=== PATIENT | female | born 1965 | race Hispanic/Latino ===

== ENCOUNTER → 2018-08-07 | Outpatient (CLI) | payer BC | END | disposition home or self-care (01) | LOC: RAH 14:29 | PROVIDERS: ATTEND Physician Assistant Medical | DX: Z12.31 Encounter for screening mammogram for malignant neoplasm of breast (principal) | CPT/HCPCS: 77067 ==

== ENCOUNTER → 2021-06-15 | Outpatient (CLI) | payer BC | END | disposition home or self-care (01) | LOC: RAH 15:02 | PROVIDERS: ATTEND Family Medicine | DX: Z12.31 Encounter for screening mammogram for malignant neoplasm of breast (principal) | CPT/HCPCS: 77067 ==

== ENCOUNTER → 2023-03-13 | Outpatient (CLI) | payer BC | END | disposition home or self-care (01) | LOC: RAH 15:03 | PROVIDERS: ATTEND Family Medicine | DX: Z12.31 Encounter for screening mammogram for malignant neoplasm of breast (principal) | CPT/HCPCS: 77067 ==